=== PATIENT | female | born 2000 | race African-American/Black ===

== ENCOUNTER 2023-01-08 20:14 | Emergency (ER) | payer OTHER ==
[~2023-01-08] VITALS: Ht 170.2 cm; Wt 75.0 kg
[2023-01-08] MEDS ORDERED: ACETAMINOPHEN 500 MG TABLET PO ONE (20:45)
[2023-01-08] MEDS ORDERED: KETOROLAC TROMETHAMINE 30 MG/ML VIAL IM ONE (20:45)
[2023-01-08] MEDS ORDERED: IBUP-1492 PO (21:29)
[2023-01-08 21:38] VITALS: BP 121/83
== END 2023-01-08 21:47 | disposition home or self-care (01) ==
LOC: EMS 20:17
DX: S63.502A Unspecified sprain of left wrist, initial encounter (principal); X50.1XXA Overexertion from prolonged static or awkward postures, initial encounter; Y93.89 Activity, other specified; Y92.89 Other specified places as the place of occurrence of the external cause; Y99.8 Other external cause status
CPT/HCPCS: 99283; 73110; 73130; 29125; 96372; J1885